=== PATIENT | female | born 1965 | race Caucasian/White ===

== ENCOUNTER → 2019-12-14 | Outpatient (CLI) | payer BC ==
[2016-05-01 15:00] VITALS: BP 153/103
[~2019-12-14] MED LIST: AMOX1TAB61 PO; ASPI325T11 PO; METO25TA4 PO
--- NOTE | 2019-12-17 18:51 | KCIC ---
Bilateral digital screening mammograms with 3-D tomosynthesis: Reason for examination: Routine screening. New baseline. Bilateral mammograms in CC and oblique projections were obtained with 2-D imaging and 3-D tomosynthesis imaging on a Siemens Inspiration unit and reviewed on the workstation. Interpretation was made with the benefit of CAD. The skin and nipples show no abnormalities. No abnormal axillary lymph nodes are seen. The breast parenchyma is heterogeneously dense. (Breast density: Category C.) There are small nodular densities in the right breast at approximately the 3:00 B and 6:00 B positions and in the left breast at approximately the 4:00 B and 6:00 B positions. Recommend further evaluation with ultrasound. There are no other dominant masses, suspicious calcifications or architectural distortion. Impression: Small nodular densities at the 3:00 B and 6:00 B positions of the right breast and at the 4:00 B and 6:00 B positions of the left breast. Recommend further evaluation with ultrasound. Your patient's mammogram demonstrates that she has dense breast tissue (breast density category C or D), which could hide abnormalities, and if she has other risk factors for breast cancer that have been identified, she might benefit from supplemental screening tests that may be suggested by you as her ordering physician. Dense breast tissue, in and of itself, is a relatively common condition. Therefore, this information is not provided to cause undue concern, but rather to raise your awareness and to promote discussion with your patient regarding the presence of other risk factors, in addition to dense breast tissue. Your patient's mammography results will be sent to her. BI-RAD Category 0: Incomplete. Needs additional imaging evaluation. "Our facility is accredited by the [employer] Mammography [employer]." This patient's information has been entered into a reminder system for the patient to be notified with the results of her examination and a target date for the next mammogram. Electronically signed by: Kristal Dhillon MD (12/17/2019 6:48 PM) [email or web address]
== END | disposition home or self-care (01) ==
LOC: KCIC MAMMO 12:19
PROVIDERS: ATTEND Obstetrics & Gynecology
DX: Z12.31 Encounter for screening mammogram for malignant neoplasm of breast (principal)
CPT/HCPCS: 77063; 77067

== ENCOUNTER → 2019-12-26 | Outpatient (CLI) | payer BC ==
[2016-05-01 15:00] VITALS: BP 153/103
--- NOTE | 2019-12-26 14:00 | KCIC ---
EXAM: Bilateral breast sonogram. HISTORY: 54-year-old female presents for evaluation of nodularity within both breasts demonstrated on a mammogram dated 12/14/2019. TECHNIQUE: Sonographic imaging of both breasts including all 4 quadrants and the retroareolar regions was performed. COMPARISON: 12/14/2019. FINDINGS: Sonographic imaging of the right breast demonstrates a suspected complicated cyst with internal echoes at the 3:00 position 6 cm for the nipple measuring 4 mm. There is a complicated cyst or benign fibrocystic lesion measuring 7 mm at the 3:00 position 3 cm from the nipple. There are dilated ducts within the 5:00 and retroareolar locations. No suspicious axillary lymph node is seen. Sonographic imaging of the left breast demonstrates a 4 mm cyst at the 4:00 position 5 cm from the nipple and 3 mm cyst at the 4:00 position 4 cm from the nipple. There is a 3 mm cyst with internal echoes at the 5:00 position 3 cm from the nipple and 5 mm cyst or fibroadenoma at the 5:00 position 2 cm from the nipple. There are dilated ducts within the retroareolar breast. There is a lymph node with prominent cortex within the left axilla measuring 1 cm in long axis. IMPRESSION: 1. Multiple benign-appearing cystic and fibrocystic lesions within both breasts and possible fibroadenoma within the 5:00 position of the left breast. There is also a left axillary lymph node with prominent cortex which may be reactive in etiology. The small cystic lesions likely correspond with areas of mammographic nodularity demonstrated on the study performed 12/14/2019. 2. BI-RADS Category 3: Probably benign finding(s). Short term follow up with a viral breast sonogram is recommended to confirm benignity. Electronically signed by: Jeanine Laguna MD (12/26/2019 1:57 PM) [email or web address]
== END ==
LOC: KCIC US 12:59
PROVIDERS: ATTEND Family Medicine
DX: N60.12 Diffuse cystic mastopathy of left breast (principal); N60.11 Diffuse cystic mastopathy of right breast
CPT/HCPCS: 76641

== ENCOUNTER → 2020-12-25 | Outpatient (CLI) | payer BC ==
[2016-05-01 15:00] VITALS: BP 153/103
--- NOTE | 2020-12-25 16:13 | KCIC ---
Left Lower Extremity Venous Doppler: Reason for examination: Fell through porch with left leg swelling. The left lower extremity venous system was evaluated from the common femoral and greater saphenous ve ins distally to the calf veins with grayscale imaging, color-flow imaging and spectral analysis. There is normal blood flow without deep venous thrombosis. There is normal response of the venous sys tems to compression and augmentation. Impression: No deep venous thrombosis in the left lower extremity venous system. Electronically signed by: Kristal Dhillon MD (12/25/2020 4:11 PM) [email or web address]
== END ==
LOC: KCIC 15:43
PROVIDERS: ATTEND Nurse Practitioner Family
DX: M79.89 Other specified soft tissue disorders (principal)
CPT/HCPCS: 93971